=== PATIENT | male | born 1955 | race Caucasian/White ===

== ENCOUNTER 2024-09-26 12:58 | Emergency (ER) | payer SELFPAY ==
[~2024-09-26] VITALS: Ht 177.8 cm; Wt 80.0 kg
[2024-09-26 13:01] VITALS: BP 132/70; PULSE 105; RESP 16; TEMP 98.5; O2SAT 98
== END 2024-09-26 14:44 | disposition left against medical advice (07) ==
LOC: ER 13:05
DX: R51.9 Headache, unspecified (principal); Z53.21 Procedure and treatment not carried out due to patient leaving prior to being seen by health care provider